=== PATIENT | male | born 1935 | race Caucasian/White ===

== ENCOUNTER 2020-08-21 12:21 | Emergency (ER) | payer OTHER ==
[~2020-08-21] VITALS: Ht 172.7 cm; Wt 72.6 kg
[~2020-08-21 12:21] MED LIST: TRAVATAN Z5 ML OP; VICODIN 5-5001 EACH PO
[2020-08-21 14:28] LABS: ABSOLUTE NEUTROPHILS 4.4 thou/uL (1.4-8.2); BASOPHILS 0.4 % (0.0-2.0); HEMATOCRIT 48.3 % (42.0-52.0); HEMOGLOBIN 16.6 gm/dL (14.0-18.0); LYMPHOCYTES 16.7 % (24.0-44.0); MCHC 34.3 g/dL (28.0-37.0); MCV 98.9 fL (80.0-100.0); MONOCYTES 9.8 % (1.0-8.0); PLATELET COUNT 177 thou/uL (150-400); POLYS 70.1 % (36.0-66.0); RBC 4.88 mil/uL (4.50-6.00); RDW 13.8 % (10.5-14.5); WBC 6.2 thou/uL (4.0-11.0)
[2020-08-21 14:35] LABS: CALCIUM 9.7 mg/dL (8.5-10.1); CREATININE 1.2 mg/dL (0.7-1.3); POTASSIUM 4.2 mmol/L (3.5-5.1)
[2020-08-21 14:40] LABS: ALBUMIN 3.9 g/dL (3.4-5.0); DIRECT BILIRUBIN 0.1 mg/dL (<0.1-0.2); MAGNESIUM 2.3 mg/dL (1.8-2.4); TOTAL BILIRUBIN 0.6 mg/dL (0.2-1.0); TOTAL PROTEIN 6.7 g/dL (6.4-8.2)
[2020-08-21] MEDS ORDERED: MOBIC15 MG PO (16:05)
[2020-08-21] MEDS ORDERED: NEURONTIN300 MG PO (16:05)
[2020-08-21 16:23] VITALS: BP 158/80
--- NOTE | 2020-08-22 12:51 | EKG ---
[facility] [place] [address] ELECTROCARDIOGRAM REPORT Name: REJI MAZA [id number] Admission: 08/21/20 Attend Phys: Discharge: 08/21/20 Date of : 33 Report #: [id number] THIS REPORT FOR: cc: KAVYA Sullivan family physician/PCP KAVYA Sullivan family physician/PCP Valentin Ledezma MD [facility] ~ THIS REPORT FOR: //name// [facility] ED Test Date: 2020-08-21 Test Time: 13:09:53 Pat Name: REJI MAZA Department: Room: Gender: Pharmacy Services Director: NO : 1935 Requested By: Leslie Bates Order Number: [id number] : Valentin Ledezma Measurements Intervals [place] Rate: 94 P: 27 [place]: 150 QRS: -19 QRSD: 72 T: 14 QT: 334 QTc: 418 Interpretive Statements Sinus rhythm Borderline left axis deviation Abnormal R-wave progression, early transition No previous ECG available for comparison Electronically Signed On 08-22-2020 12:51:23 QUARRYING MANAGER by Valentin Ledezma [email or web address] <ELECTRONICALLY SIGNED> By: Valentin Ledezma MD, FACC 08/22/20 1251 1309 1309 Valentin Ledezma MD, [facility] /EPI
== END 2020-08-21 16:24 | disposition home or self-care (01) ==
LOC: ER 12:21
PROVIDERS: Emergency Medicine
DX: G62.9 Polyneuropathy, unspecified (principal); Z79.899 Other long term (current) drug therapy